=== PATIENT | female | born 1990 | race Caucasian/White ===

== ENCOUNTER 2018-01-17 22:04 | Emergency (ER) | payer MEDICAID ==
[~2018-01-17] VITALS: Ht 157.5 cm; Wt 72.0 kg
[2018-01-18] MEDS ORDERED: KETOROLAC 30MG/ML VIAL IV ONE (00:45)
[2018-01-18 02:07] LABS: CHLORIDE 105 mEq/L (98-107)
[2018-01-18 02:14] LABS: HEMATOCRIT 30.9 % (36.0-48.0); MEAN CORPUSCULAR HEMOGLOBIN 28.8 pg (28.0-32.0); MEAN CORPUSCULAR VOLUME 89.3 fL (81.0-99.0); PLATELET 621 x1000/uL (130-400); RED BLOOD CELL COUNT 3.46 mill/uL (4.2-5.4); RED CELL DISTRIBUTION WIDTH 20.6 % (11.6-14.6)
[2018-01-18] MEDS ORDERED: IOHEXOL-300 100 ML BOTTLE ONE (04:36)
[2018-01-18 07:03] VITALS: BP 98/66
== END 2018-01-18 07:05 | disposition home or self-care (01) ==
LOC: ER 22:04
DX: O90.89 Other complications of the puerperium, not elsewhere classified (principal); K62.3 Rectal prolapse; K42.9 Umbilical hernia without obstruction or gangrene
CPT/HCPCS: 36415; 72193; 80053; 83605; 85027; 87040; 96374; 99285; J1885; Q9967